=== PATIENT | female | born 1950 | race Caucasian/White ===

== ENCOUNTER 2019-04-20 10:49 | Inpatient (IN) ==
[2019-04-20] MEDS ORDERED: CeFAZolin Syr 2,000MG/20 ML 2,000 MG/20 ML SYRINGE IVPB ONE (11:04)
[2019-04-20] MEDS ORDERED: Albuterol 2.5 MG/3 ML NEBULIZER IH PRN ×2 (11:04→16:23)
[2019-04-20] MEDS ORDERED: Ringers Solution, Lactated 1,000 ML IVC SCH (11:15)
[2019-04-20] MEDS ORDERED: *HR* FentaNYL (PF) 100 MCG/2 ML VIAL ONE (11:35)
[2019-04-20] MEDS ORDERED: *HR* Midazolam HCl 2 MG/2 ML VIAL ONE (11:35)
[2019-04-20] MEDS ORDERED: *HR* Propofol 200 MG/20 ML VIAL IVP ONE (11:36)
[2019-04-20] MEDS ORDERED: Dexamethasone 4 MG/ML VIAL ONE (11:37)
[2019-04-20] MEDS ORDERED: Lidocaine -MPF 2% 2 ML VIAL ONE (11:37)
[2019-04-20] MEDS ORDERED: Ondansetron 4 MG/2 ML VIAL ONE (11:37)
[2019-04-20] MEDS ORDERED: Famotidine 20 MG/2 ML VIAL IVP ONE (11:45)
[2019-04-20] MEDS ORDERED: Acetaminophen IV 1,000 MG/100 ML INFUS..BTL IVPB ONE (11:46)
[2019-04-20] MEDS ORDERED: Pregabalin 75 MG CAPSULE PO ONE (11:46)
[2019-04-20] MEDS ORDERED: *HR* HYDROmorphone 2 MG TABLET PO PRN (11:47)
[2019-04-20] MEDS ORDERED: *HR* Labetalol 20 MG/4 ML SYRINGE IVP PRN (11:47)
[2019-04-20] MEDS ORDERED: *HR* HYDROmorphone (PF) 1 MG/ML SYRINGE IVP PRN (11:47)
[2019-04-20] MEDS ORDERED: Ethanol\\Acetic Acid\\Na Ace\\Ben 1,000 ML IRRIG.SOLN IR ONE (12:43)
[2019-04-20] MEDS ORDERED: *HR* PHENYLEPHRINE 1,000 MCG/10 ML SYRINGE IVP ONE (13:05)
[2019-04-20] MEDS ORDERED: Tranexamic Acid 1,000 MG/10 ML VIAL ONE (14:19)
[2019-04-20] MEDS ORDERED: Propofol 500 MG/50 ML INFUS..BTL ONE (14:27)
[2019-04-20] MEDS ORDERED: EPHEDrine 50 MG/ML VIAL ONE (14:30)
[2019-04-20 15:59] LABS: Hematocrit 36.7 % (35.3-44.9); Hemoglobin 12.2 g/dL (11.5-15.4)
[2019-04-20] MEDS ORDERED: Ondansetron 4 MG/2 ML VIAL IVP PRN (16:23)
[2019-04-20] MEDS ORDERED: HYDROcodone BIT/Homatropine 5 MG TABLET PO PRN (16:23)
[2019-04-20] MEDS ORDERED: Temazepam 15 MG CAPSULE PO PRN (16:23)
[2019-04-20] MEDS ORDERED: SUMAtriptan succinate 50 MG TABLET PO PRN (16:23)
[2019-04-20] MEDS ORDERED: Naloxone 0.4 MG/ML INJ IVP PRN (16:23)
[2019-04-20] MEDS ORDERED: traMADol 50 MG TABLET PO PRN (16:23)
[2019-04-20] MEDS ORDERED: *HR* Promethazine 25 MG/ML VIAL IVP PRN (16:23)
[2019-04-20] MEDS ORDERED: Sennosides 8.6 MG TABLET PO PRN (16:23)
[2019-04-20] MEDS: Ascorbic Acid 500 MG TABLET PO SCH (17:37)
[2019-04-20] MEDS: *HR* OxyCODONE Immed Rel 5 MG TABLET PO PRN ×2 (17:37→22:03)
[2019-04-20] MEDS: Ringers Solution, Lactated 1,000 ML IVC SCH (19:37)
[2019-04-20] MEDS: Budesonide/Formoterol 80/4.5 1 PUFF INH IH SCH (19:48)
[2019-04-20] MEDS ORDERED: MOM Conc 10 ML UD.LIQ PO PRN (21:00)
[2019-04-20] MEDS ORDERED: Lithium Carbonate 300 MG CAPSULE PO SCH (21:00)
[2019-04-21] MEDS: Ringers Solution, Lactated 1,000 ML IVC SCH (03:21)
[2019-04-21 04:20] LABS: Basophils # 0.1 K/mcL (0.0-0.2); Basophils % 0.4 %; Eosinophils % 0.1 %; Hematocrit 36.5 % (35.3-44.9); Hemoglobin 11.7 g/dL (11.5-15.4); Immature Granulocytes % 0.3 % (0-4); Lymphocytes # 1.2 K/mcL (0.6-4.6); Lymphocytes % 9.9 %; Mean Corpuscular HGB Conc 32.1 g/dL (31.6-35.5); Mean Corpuscular Hemoglobin 30.9 pg (28.0-33.3); Mean Corpuscular Volume 96.3 fL (83.0-100.0); Monocytes # 0.6 K/mcL (0.0-1.3); Monocytes % 4.4 %; Neutrophils # 10.7 K/mcL (1.6-8.9); Platelet Count 152 K/mcL (140-400); Red Blood Count 3.79 M/mcL (3.82-4.97); Red Cell Distribution Width 13.3 % (11.5-14.5); Segmented Neutrophils % 84.9 %; White Blood Count 12.6 K/mcL (4.3-11.1)
[2019-04-21 04:37] LABS: BUN/Creatinine Ratio 21 (6-26); Blood Urea Nitrogen 20 mg/dL (8-23); Calcium 9.2 mg/dL (8.6-10.3); Carbon Dioxide 24 mEq/L (23-29); Chloride 107 mEq/L (98-107); Glucose 118 mg/dL (70-105); Osmolality,Calculated 290 (280-300); Potassium 4.4 mEq/L (3.5-5.1); Sodium 138 mEq/L (136-145); eGFR For African Americans > 60 (> 60); eGFR For Non-African Americans 57 (> 60)
[2019-04-21] MEDS: Ascorbic Acid 500 MG TABLET PO SCH (07:27)
[2019-04-21] MEDS: Budesonide/Formoterol 80/4.5 1 PUFF INH IH SCH (07:54)
[2019-04-21] MEDS ORDERED: Cholecalciferol (D-3) 1,000 UNIT (25MCG) TABLET PO SCH (09:00)
[2019-04-21] MEDS ORDERED: hydroCHLOROthiazide 25 MG TABLET PO SCH (09:00)
[2019-04-21] MEDS ORDERED: MYRBETRIQ 50 MG PO SCH (09:00)
[2019-04-21] MEDS ORDERED: amLODIPine 5 MG TABLET PO SCH (09:00)
[2019-04-21] MEDS ORDERED: Multivit/Ca/Min/Fe/FA 1 TAB TABLET PO SCH (09:00)
[2019-04-21 10:58] VITALS: BP 105/65
[2019-04-21] MEDS ORDERED: *HR* Enoxaparin 30 MG/0.3 ML SYRINGE SQ SCH ×2 (18:00)
== END 2019-04-21 15:35 | disposition home health service (06) | DRG 470 ==
LOC: SAMDAY 10:49 → 3NENU 16:19
PROVIDERS: ADMIT Orthopaedic Surgery; ATTEND Orthopaedic Surgery